=== PATIENT | male | born 1965 | race Caucasian/White ===

== ENCOUNTER → 2017-12-16 | Outpatient (CLI) | payer BC | LOC: M WUC 11:24 | DX: M51.37 Other intervertebral disc degeneration, lumbosacral region (principal) | CPT/HCPCS: 87086 ==

== ENCOUNTER → 2018-01-10 | Outpatient (REF) | payer BC ==
[2018-01-10 18:14] LABS: BASO % 0.7 % (0.0-1.0); EOS # 0.3 10^3/uL (0.0-0.50); EOS % 6.2 % (0.0-3.0); HEMATOCRIT 43.3 % (42.0-52.0); HEMOGLOBIN 14.6 g/dl (13.5-17.5); IMMATURE GRANULOCYTE % 0.4 % (0-3.0); LYMPH # 0.8 10^3/uL (1.5-4.5); LYMPH % 15.7 % (24.0-44.0); MEAN CORPUSCULAR HEMOGLOBIN 29.4 pg (27.0-33.0); MEAN CORPUSCULAR HGB CONC 33.7 g/dl (32.0-36.5); MEAN CORPUSCULAR VOLUME 87.1 fl (80.0-96.0); MONO # 0.5 10^3/uL (0.0-0.8); MONO % 10.1 % (0.0-5.0); NEUTROPHILS # 3.6 10^3/uL (1.8-7.7); NEUTROPHILS % 66.9 % (36.0-66.0); PLATELET COUNT, AUTOMATED 263 10^3/uL (150-450); RED BLOOD COUNT 4.97 10^6/uL (4.30-6.10); RED CELL DISTRIBUTION WIDTH 11.9 % (11.5-14.5); WHITE BLOOD COUNT 5.4 10^3/uL (4.0-10.0)
[2018-01-10 18:22] LABS: ALBUMIN 3.4 GM/DL (3.2-5.2); ALBUMIN/GLOBULIN RATIO 0.92 (1.00-1.93); ALKALINE PHOSPHATASE 227 U/L (45-117); ALT/SGPT 171 U/L (12-78); ANION GAP 6 MEQ/L (8-16); AST/SGOT 38 U/L (7-37); BILIRUBIN,TOTAL 0.4 MG/DL (0.2-1.0); BLOOD UREA NITROGEN 28 MG/DL (7-18); C REACTIVE PROTEIN QUANTITATIV 5.52 MG/DL (0.00-0.30); CALCIUM LEVEL 8.7 MG/DL (8.5-10.1); CARBON DIOXIDE LEVEL 29 MEQ/L (21-32); CHLORIDE LEVEL 105 MEQ/L (98-107); CREATININE FOR GFR 1.14 MG/DL (0.70-1.30); GLOMERULAR FILTRATION RATE > 60.0 (>56); GLUCOSE, FASTING 99 MG/DL (70-100); POTASSIUM SERUM 4.3 MEQ/L (3.5-5.1); SODIUM LEVEL 140 MEQ/L (136-145); TOTAL PROTEIN 7.1 GM/DL (6.4-8.2); URIC ACID 6.9 MG/DL (3.5-7.2)
[2018-01-10 19:25] LABS: ERYTHROCYTE SEDIMENTATION RATE 43 mm/hr (0-20)
== END ==
LOC: M LABDRAW1 17:13
DX: M10.9 Gout, unspecified (principal)
CPT/HCPCS: 84550

== ENCOUNTER → 2018-01-26 | Outpatient (REF) | payer BC ==
[2018-01-26 17:58] LABS: ALBUMIN 3.5 GM/DL (3.2-5.2); ALBUMIN/GLOBULIN RATIO 1.09 (1.00-1.93); ALKALINE PHOSPHATASE 162 U/L (45-117); ALT/SGPT 119 U/L (12-78); ANION GAP 10 MEQ/L (8-16); AST/SGOT 31 U/L (7-37); BILIRUBIN,TOTAL 0.4 MG/DL (0.2-1.0); BLOOD UREA NITROGEN 30 MG/DL (7-18); CALCIUM LEVEL 8.3 MG/DL (8.5-10.1); CARBON DIOXIDE LEVEL 27 MEQ/L (21-32); CHLORIDE LEVEL 106 MEQ/L (98-107); CREATININE FOR GFR 1.33 MG/DL (0.70-1.30); GLOMERULAR FILTRATION RATE > 60.0 (>56); GLUCOSE, FASTING 102 MG/DL (70-100); POTASSIUM SERUM 3.7 MEQ/L (3.5-5.1); SODIUM LEVEL 143 MEQ/L (136-145); TOTAL PROTEIN 6.7 GM/DL (6.4-8.2)
== END ==
LOC: M LABDRAW1 17:12
DX: M10.9 Gout, unspecified (principal)
CPT/HCPCS: 84550

== ENCOUNTER → 2018-03-12 | Outpatient (REF) | payer BC ==
[2018-03-12 16:29] LABS: ALBUMIN 4.2 GM/DL (3.2-5.2); BILIRUBIN,TOTAL 0.4 MG/DL (0.2-1.0); CALCIUM LEVEL 8.8 MG/DL (8.5-10.1); CREATININE FOR GFR 1.36 MG/DL (0.70-1.30); GLOMERULAR FILTRATION RATE 58.8 (>56); POTASSIUM SERUM 4.2 MEQ/L (3.5-5.1); TOTAL PROTEIN 7.7 GM/DL (6.4-8.2)
== END ==
LOC: M LABDRAW1 15:32
PROVIDERS: ATTEND Physician Assistant
DX: M10.9 Gout, unspecified (principal)

== ENCOUNTER 2018-03-28 09:09 | Day surgery (SDC) | payer BC ==
[~2018-03-28] VITALS: Ht 182.9 cm; Wt 94.8 kg
[~2018-03-28 09:09] MED LIST: ALLO100T PO; COLC1TAB13 PO; OLME40TA PO; XALA0.007 OU
[2018-03-28] MEDS: NS 1,000 ML IV SCH ×2 (09:15→09:57)
[2018-03-28] MEDS ORDERED: LIDOCAINE 2% INJ 100 MG/5 ML SDV (FOR ANES.) As Ordered ONE (10:17)
[2018-03-28] MEDS ORDERED: PROPOFOL 200 MG/20 ML VIAL As Ordered ONE (10:17)
--- NOTE | 2018-03-28 10:57 | ROOR ---
Patient Name: Eduardo Singh Procedure Date: 03/28/2018 10:37 AM Date of : 1965 Age: 53 Room: [facility] Gender: Male Note Status: Finalized Procedure: Total Colonoscopy to Cecum Indications: Screening for colorectal malignant neoplasm Providers: Merrill Cheema MD Referring MD: Camden Quinn Requesting Provider: Medicines: Monitored Anesthesia Care Complications: No immediate complications. Procedure: Pre-Anesthesia Assessment: - The heart rate, respiratory rate, oxygen saturations, blood pressure, adequacy of pulmonary ventilation, and response to care were monitored throughout the procedure. The Colonoscope was introduced through the anus and advanced to the cecum, identified by appendiceal orifice and ileocecal valve. The colonoscopy was performed without difficulty. The patient tolerated the procedure well. The quality of the bowel preparation was excellent. Findings: The perianal and digital rectal examinations were normal. Non-bleeding internal hemorrhoids were found during retroflexion. The hemorrhoids were small and Grade I (internal hemorrhoids that do not prolapse). No other significant abnormalities were identified in a careful examination of the remainder of the colon. The exam was otherwise without abnormality on direct and retroflexion views. Impression: - Non-bleeding internal hemorrhoids. - The examination was otherwise normal on direct and retroflexion views. - No specimens collected. - The exam was otherwise normal to the cecum. Recommendation: - Patient has a contact number available for emergencies. The signs and symptoms of potential delayed complications were discussed with the patient. Return to normal activities tomorrow. Written discharge instructions were provided to the patient. - High fiber diet. - Discharge patient to home. - Continue present medications. - Repeat colonoscopy in 10 years for screening purposes. - Return to referring physician. - The findings and recommendations were discussed with the patient's family. Merrill Cheema MD Merrill Cheema MD 03/28/2018 10:57:13 AM This report has been signed electronically. Number of Addenda: 0 Note Initiated On: 03/28/2018 10:37 AM Estimated Blood Loss: Estimated blood loss: none.
[2018-03-28 11:15] VITALS: BP 107/77
== END 2018-03-28 11:22 | disposition home or self-care (01) ==
LOC: M OPP 09:09
PROVIDERS: ATTEND Internal Medicine Gastroenterology
DX: Z12.11 Encounter for screening for malignant neoplasm of colon (principal); K64.0 First degree hemorrhoids; Z91.011 Allergy to milk products; Z79.899 Other long term (current) drug therapy

== ENCOUNTER → 2018-08-21 | Outpatient (REF) | payer BC ==
[2018-08-21 12:56] LABS: HEMOGLOBIN A1c 5.8 %
[2018-08-21 13:11] LABS: ALBUMIN 3.7 GM/DL (3.2-5.2); ALT/SGPT 116 U/L (12-78); BILIRUBIN,TOTAL 0.4 MG/DL (0.2-1.0); BLOOD UREA NITROGEN 24 MG/DL (7-18); CALCIUM LEVEL 8.5 MG/DL (8.5-10.1); CARBON DIOXIDE LEVEL 27 MEQ/L (21-32); CHLORIDE LEVEL 106 MEQ/L (98-107); CHOLESTEROL LEVEL 277 MG/DL (<200); GLOMERULAR FILTRATION RATE > 60.0 (>56); GLUCOSE, FASTING 105 MG/DL (70-100); HDL CHOLESTEROL 50 MG/DL (>40); NON-HDL-C 227 MG/DL; SODIUM LEVEL 140 MEQ/L (136-145); TOTAL 25(OH) VITAMIN D 18.1 NG/ML (30.0-100.0); TRIGLYCERIDES LEVEL 442 MG/DL (<150)
== END ==
LOC: M LABDRAW1 11:48
PROVIDERS: ATTEND Physician Assistant
DX: M10.9 Gout, unspecified (principal); R73.01 Impaired fasting glucose; E55.9 Vitamin D deficiency, unspecified; E78.2 Mixed hyperlipidemia

== ENCOUNTER → 2022-09-16 | Outpatient (CLI) | payer BC ==
[~2022-09-16] MED LIST changes: +COLC0.6T47 PO; -COLC1TAB13 PO
== END ==
LOC: M WUC 08:09
PROVIDERS: ATTEND Nurse Practitioner Family
DX: D86.0 Sarcoidosis of lung (principal); R59.9 Enlarged lymph nodes, unspecified